=== PATIENT | male | born 2000 | race Caucasian/White ===

== ENCOUNTER 2022-12-09 14:33 | Emergency (ER) | payer OTHER ==
[2022-12-09] MEDS ORDERED: Acetaminophen 500 MG TAB ONE (17:04)
[2022-12-09] MEDS ORDERED: Ibuprofen 200 MG TAB ONE (17:04)
== END 2022-12-09 18:42 | disposition home or self-care (01) ==
LOC: CSHERS 14:33
DX: N50.811 Right testicular pain (principal)
CPT/HCPCS: 76870; 93976